=== PATIENT | male | born 1985 | race Asian ===

== ENCOUNTER 2017-08-01 09:04 | Emergency (ER) | payer BC ==
[~2017-08-01] VITALS: Ht 172.7 cm; Wt 94.5 kg
[2017-08-01 09:09] VITALS: Ht 172.7 cm; Wt 94.5 kg
[2017-08-01] MEDS ORDERED: ONDANSETRON 4 MG INJ IV STA (09:49)
[2017-08-01] MEDS ORDERED: morphine 4 MG/ML VIAL IV STA (09:49)
[2017-08-01] MEDS ORDERED: SOD CHLORIDE 0.9% 1,000 ML IV STA (09:49)
[2017-08-01 10:20] LABS: BASOPHILS % 0.2 % (0.0-2.0); EOSINOPHILS # 0.1 10^3/ul (0.0-0.5); EOSINOPHILS % 0.5 % (0.0-7.0); HEMATOCRIT 50.5 % (42.0-52.0); HEMOGLOBIN 16.4 g/dl (14.0-18.0); LYMPHOCYTES # 0.8 10^3/ul (0.8-2.9); LYMPHOCYTES % 7.5 % (15.0-51.0); MEAN CORPUSCULAR HEMOGLOBIN 29.9 pg (29.0-33.0); MEAN CORPUSCULAR HGB CONC 32.5 g/dl (32.0-37.0); MEAN PLATELET VOLUME 10.4 fl (7.4-10.4); MONOCYTE # 0.5 10^3/ul (0.3-0.9); NEUTROPHIL # 9.3 10^3/ul (1.6-7.5); NEUTROPHILS % 86.5 % (39.0-77.0); PLATELET COUNT 233 10^3/UL (140-415); RED BLOOD COUNT 5.49 10^6/ul (4.70-6.10); RED CELL DISTRIBUTION WIDTH 13.6 % (11.5-14.5); WHITE BLOOD COUNT 10.7 10^3/ul (4.8-10.8)
[2017-08-01 10:26] LABS: ADD UMIC YES; UR ASCORBIC ACID 40 mg/dL (NEGATIVE); UR BILIRUBIN (Dip) NEGATIVE (NEGATIVE); UR BLOOD (Dip) 3+ mg/dL (NEGATIVE); UR CLARITY SLIGHTLY CLOUDY (CLEAR); UR COLOR AMBER (YELLOW); UR GLUCOSE (Dip) NEGATIVE (NEGATIVE); UR KETONES (Dip) TRACE mg/dL (NEGATIVE); UR LEUKOCYTE ESTERASE (Dip) NEGATIVE Leu/ul (NEGATIVE); UR MUCUS MODERATE /HPF (NONE SEEN); UR NITRITE (Dip) NEGATIVE (NEGATIVE); UR RBC 165 /HPF (0-5); UR SPECIFIC GRAVITY (Dip) 1.025 (1.003-1.030); UR TOTAL PROTEIN (Dip) 2+ mg/dl (NEGATIVE); UR UROBILINOGEN (Dip) 1+ mg/dL (NEGATIVE)
[2017-08-01 10:45] LABS: ALBUMIN 4.9 g/dl (3.3-4.9); ALBUMIN/GLOBULIN RATIO 1.13; BILIRUBIN,INDIRECT 0.5 mg/dl (0-1.1); BILIRUBIN,TOTAL 0.5 mg/dl (0.2-1.3); CALCIUM 9.6 mg/dl (8.4-10.2); CREATININE 1.01 mg/dl (0.61-1.24); POTASSIUM 3.9 mmol/L (3.5-5.1); TOTAL PROTEIN 9.2 g/dl (6.1-8.1)
--- NOTE | 2017-08-01 12:30 | RADRPT ---
PROCEDURE: CT abdomen and pelvis without contrast. CLINICAL INDICATION: Abdominal pain. TECHNIQUE: CT scan of the abdomen and pelvis without contrast was performed on a multi-slice CT [facility] . Sagittal and coronal reformatted images were obtained from the axial source images. One or more of the following dose reduction techniques were used: - Automated exposure control. - Adjustment of the mA and/or kV according to patient size. - Use of iterative reconstruction technique. DLP 1193.1 mGycm. CTDIvol 18.3 is mGy COMPARISON: None FINDINGS: The lung bases are clear. There is limited evaluation of the solid viscera from the lack of IV con trast. There is a 3 mm right lower pole nonobstructing renal stone. No left-sided renal calculus present. T here is a small obstructing stone is seen within the right mid ureter which measures 2 mm. This resu lts in minimal enlargement of the right proximal ureter with periureteral fat stranding is present. There is normal density of the liver with no gross focal lesion or biliary ductal dilatation. The gallbladder is unremarkable without inflammation. The spleen is unremarkable without mass. The adrenal glands are within normal limits without mass. The pancreas is unremarkable without focal lesion or surrounding inflammatory changes. There is no bowel obstruction or focal bowel inflammation. The appendix is unremarkable. There is no free air or free fluid. There are no enlarged lymph nodes. The aorta is unremarkable and there is no acute osseous abnormality. Mild degenerative disc changes are seen within the lower lumbar spine. The prostate is grossly unremarkable. IMPRESSION: There is a 2 mm right mid ureteral stone which results in mild obstruction and inflammation of the r ight ureter. A second nonobstructing stone is also seen in the right kidney. No evidence of bowel obstruction or inflammation. There is no appendicitis. RPTAT: AA .Chan Martinez MD, MD Date Time Electronically viewed and signed by .Chan Martinez MD, MD on 08/01/2017 12:29 .Scot/
[2017-08-01] MEDS ORDERED: KETOROLAC 30 MG INJ IV STA (12:32)
[2017-08-01] MEDS ORDERED: HYDR-906 PO (12:51)
[2017-08-01] MEDS ORDERED: IBUP-1542 PO (12:52)
[2017-08-01] MEDS ORDERED: ONDA-43 PO (12:53)
--- NOTE | 2017-08-01 13:12 | ERD ---
ER Documentation Chief Complaint Chief Complaint Complains of right lower quadrant abd pain HPI This is a 31-year-old male presents to the ER with right-sided lower abdominal pain that started this morning. Pain came on suddenly and is severe and intermittent. Patient states that pain is sharp and radiates to the side. He had one episode of nonbilious nonbloody vomiting. He does not have any diarrhea. He denies any urinary frequency or dysuria. He has not traveled anywhere. There are no sick contacts at home. ROS 12 point review of systems was done, all negative except per HPI. Medications Home Meds Active Scripts Ondansetron Hcl* (Zofran*) 4 Mg Tab, 4 MG PO Q4H Y for NAUSEA AND OR VOMITING for 3 Days, TAB Prov:COLLETTE GONZALEZ 08/01/17 Ibuprofen* (Motrin*) 600 Mg Tab, 600 MG PO Q6, #30 TAB Prov:COLLETTE GONZALEZ 08/01/17 Hydrocodone/Acetaminophen ([place] 5-325 Tablet) 1 Each Tablet, 1 TAB PO Q6H Y for PAIN, #20 TAB Prov:COLLETTE GONZALEZ 08/01/17 PMhx/Soc Medical and Surgical Hx: pt denies Medical Hx, pt denies Surgical Hx Hx Alcohol Use: No Hx Substance Use: No Hx Tobacco Use: No Smoking Status: Never smoker Physical Exam Vitals Vital Signs Date Time Temp Pulse Resp B/P Pulse Ox O2 Delivery O2 Flow Rate FiO2 08/01/17 09:09 98.3 66 20 121/88 98 Physical Exam GENERAL: The patient is well developed and appropriate for usual state of health , in no apparent distress. HEENT: Atraumatic CHEST: Clear to auscultation bilaterally. There are no rales, wheezes or rhonchi. HEART: Regular rate and rhythm. No murmurs, clicks, rubs or gallops. ABDOMEN: Soft, nontender and nondistended. Good bowel sounds. No rebound or guarding. No gross peritonitis. No gross organomegaly or masses. No Madrigal sign or McBurney point tenderness. BACK: No midline or flank tenderness. NEURO: Alert and oriented SKIN: There is no apparent rash or petechia. The skin is warm and dry. Result Diagram: 08/01/17 1007 08/01/17 1007 Results 24 hrs Laboratory Tests Test 08/01/17 10:00 08/01/17 10:07 Urine Color CASSIDY Urine Clarity SLIGHTLY CLOUDY Urine pH 5.0 Urine Specific [place] 1.025 Urine Ketones TRACEmg/dL Urine Nitrite NEGATIVEmg/dL Urine Bilirubin NEGATIVEmg/dL Urine Urobilinogen 1+mg/dL Urine Leukocyte Esterase NEGATIVELeu/ul Urine Microscopic RBC 165/HPF Urine Microscopic WBC 4/HPF Urine Mucus MODERATE/HPF Urine Hemoglobin 3+mg/dL Urine Glucose NEGATIVEmg/dL Urine Total Protein 2+mg/dl White Blood Count 10.710^3/ul Red Blood Count 5.4910^6/ul Hemoglobin 16.4g/dl Hematocrit 50.5% Mean Corpuscular Volume 92.0fl Mean Corpuscular Hemoglobin 29.9pg Mean Corpuscular Hemoglobin Concent 32.5g/dl Red Cell Distribution Width 13.6% Platelet Count 06232^3/UL Mean Platelet Volume 10.4fl Neutrophils % 86.5% Lymphocytes % 7.5% Monocytes % 5.0% Eosinophils % 0.5% Basophils % 0.2% Nucleated Red Blood Cells % 0.0/100WBC Neutrophils # 9.310^3/ul Lymphocytes # 0.810^3/ul Monocytes # 0.510^3/ul Eosinophils # 0.110^3/ul Basophils # 0.010^3/ul Nucleated Red Blood Cells # 0.010^3/ul Sodium Level 149mmol/L Potassium Level 3.9mmol/L Chloride Level 106mmol/L Carbon Dioxide Level 28mmol/L Anion Gap 19 Blood Urea Nitrogen 13mg/dl Creatinine 1.01mg/dl Glucose Level 121mg/dl Calcium Level 9.6mg/dl Total Bilirubin 0.5mg/dl Direct Bilirubin 0.00mg/dl Indirect Bilirubin 0.5mg/dl Aspartate Amino Transf (AST/SGOT) 58IU/L Alanine Aminotransferase (ALT/SGPT) 130IU/L Alkaline Phosphatase 104IU/L Total Protein 9.2g/dl Albumin 4.9g/dl Globulin 4.30g/dl Albumin/Globulin Ratio 1.13 Lipase 29U/L Current Medications Medications (Trade) Dose Ordered Sig/Christin Route PRN Reason Start Time Stop Time Status Last Admin Dose Admin Sodium Chloride (NS) 1,000 ml @ 1,000 mls/hr Q1H STAT IV 08/01/17 09:49 08/01/17 10:48 DC 08/01/17 10:04 Morphine Sulfate (morphine) 4 mg ONCE STAT IV 08/01/17 09:49 08/01/17 09:51 DC 08/01/17 10:11 Ondansetron HCl (Zofran Inj) 4 mg ONCE STAT IV 08/01/17 09:49 08/01/17 09:51 DC 08/01/17 10:11 Ketorolac Tromethamine (Toradol) 30 mg ONCE STAT IV 08/01/17 12:32 08/01/17 12:33 DC 08/01/17 13:00 Procedures/MDM This is a 32-year-old male presents to the ER with right-sided abdominal pain; differential diagnosis includes but is not limited to appendicitis, cholecystitis, choledocholithiasis, cholangitis, pancreatitis, nephrolithiasis, obstructive stone, septic stone. He does have a kidney stone which is near the ureter. This is likely the cause of the pain. Patient is afebrile and well- appearing. This stone will likely pass on its own. Will be sent home with ibuprofen, [place], Zofran. He is to follow-up with his primary care doctor within 1-2 days or see a urologist if symptoms do not improve. Told to return to ER sooner if symptoms worsen. My medical decision making was shared with the patient understands. Departure Diagnosis: Primary Impression: Ureteral stone Condition: Stable Patient Instructions: Kidney Stone W/ Colic Additional Instructions: Call your primary care doctor TOMORROW for an appointment during the next 1-2 days.See the doctor sooner or return here if your condition worsens before your appointment time. COLLETTE GONZALEZ Aug 01, 2017 13:12
== END 2017-08-01 13:35 | disposition home or self-care (01) ==
LOC: FTE 09:04
DX: N20.1 Calculus of ureter (principal)
CPT/HCPCS: 36415; 74176; 80053; 81001; 83690; 85025; 96374; 96375; 99285; J1885; J2270; J2405; J7030